=== PATIENT | male | born 1965 | race Caucasian/White ===

== ENCOUNTER 2024-10-27 14:23 | Emergency (ER) | payer MEDICAID ==
[~2024-10-27] VITALS: Ht 160 cm; Wt 59.0 kg
[2024-10-27 14:34] VITALS: O2SAT 97
[2024-10-27] MEDS ORDERED: GUAI237L83 MT (16:15)
[2024-10-27] MEDS ORDERED: IBUP-2029 MT (16:15)
[2024-10-27] MEDS: IBUPROFEN 600MG TABLET PO ONE (16:23)
[2024-10-27 16:29] VITALS: BP 157/95; PULSE 107; RESP 16; TEMP 37.1; O2SAT 98
== END 2024-10-27 16:32 | disposition home or self-care (01) ==
LOC: ER 14:23
DX: J06.9 Acute upper respiratory infection, unspecified (principal)
CPT/HCPCS: 71045; 99283